=== PATIENT | male | born 1950 | race Caucasian/White ===

== ENCOUNTER 2024-02-23 13:00 | Outpatient (CLI) | payer OTHER, SELFPAY ==
[2024-02-27 09:04] LABS: Absolute Lymphocyte Count 1.52 X10^3/uL (0.83-4.51); Absolute Neutrophil Count 4.3 X10^3/uL (2.0-7.7); Basophil# 0.03 X10^3/uL; Basophil% 0.4 % (0-1); Eosinophil# 0.52 X10^3/uL; Eosinophils% 7.3 % (0-5); Hematocrit 42.1 % (40-54); Hemoglobin 13.2 g/dL (13.0-16.5); Lymphocyte # 1.52 X10^3/ul (0.83-4.51); Lymphocyte % 21.3 % (19-41); Mean Corp Hgb Conc 31.4 g/dL (32-36); Mean Corpuscular Hgb 27.3 pg (27.0-32.0); Mean Platelet Vol. 9.2 fl (6.2-12.0); Monocyte# 0.72 X10^3/uL; Monocyte% 10.1 % (0-10); NRBC Flagged by Analyzer 0 % (0-5); Neutrophil # 4.34 X10^3/uL (2.7-7.7); Neutrophil % 60.6 % (47-70); Platelet Count 283 K/mm3 (150-450); RBC Distribution Width CV 13.4 % (11.6-14.6); RBC Distribution Width SD 42.8 fl (35.1-43.9); Red Blood Count 4.84 M/mm3 (4.6-6.2); White Blood Count 7.2 K/mm3 (4.4-11.0)
[2024-02-27 09:53] LABS: Albumin, Serum 3.2 g/dL (3.2-5.0); Anion Gap 6 (5-15); BUN 16 mg/dL (7-18); BUN/Creat Ratio 19.8 RATIO (10-20); Calcium,Total 9.2 mg/dL (8.5-10.1); Chloride 105 mmol/L (98-107); Creatinine, Serum 0.81 mg/dL (0.70-1.30); EST Glomerular Filtration Rate 99 mL/min (>60); Est Glom Filt Rate - Afr Amer 120 mL/min (>60); Glucose 93 mg/dL (74-106); Magnesium 1.9 mg/dL (1.6-2.6); Potassium 4.3 mmol/L (3.5-5.1); Sodium Level 138 mmol/L (136-145)
== END 2024-02-23 23:00 | disposition home or self-care (01) ==
LOC: SDC 07-17 22:05
PROVIDERS: Referring Provider Student in an Organized Health Care Education/Training Program; Visit Provider Student in an Organized Health Care Education/Training Program
DX: Z01.818 Encounter for other preprocedural examination (principal)
CPT/HCPCS: 36415; 80048; 82040; 83735; 85025; 87081

== ENCOUNTER → 2024-02-27 | Outpatient (CLI) | payer OTHER, SELFPAY ==
--- NOTE | 2024-02-27 06:37 | CT_ITS ---
EXAM: CT LEFT LOWER EXTREMITY WITHOUT INTRAVENOUS CONTRAST CLINICAL INDICATION: PAIN TECHNIQUE: Helically acquired images were obtained of the left lower extremity without intravenous contrast. 2-D reformats were performed by the technologist. CTDIvol = ( 18.76 ) mGy, DLP = ( 1177.54 ) mGycm This CT exam was performed using one or more of the following dose reduction techniques: automated exposure control, adjustment of the mA and/or kV according to patient size, and/or use of iterative reconstruction technique. COMPARISON: No relevant prior studies available. FINDINGS: BONES/JOINTS: Moderate left hip osteoarthrosis. 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 Lateral and medial meniscal chondrocalcinosis. Ankle mortise is intact. A few small chronic erosions with overhanging edges at the inferior process of the medial malleolus. No sclerotic or destructive changes. No acute or healing fracture or other malalignment. No significant tibiotalar joint effusion. No osteochondral defects at the tibiotalar articulation. SOFT TISSUES: Unremarkable. No soft tissue swelling or gas. No radiopaque foreign body. CT/Extremity Lower without Contra IMPRESSION: 1. 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 2. Moderate left hip osteoarthrosis. 3. A few small chronic erosions with overhanging edges at the inferior process of the medial malleolus. Electronically Signed: Juan Aguirre MD at 22:41 EDT ,
== END | disposition home or self-care (01) ==
PROVIDERS: Referring Provider Student in an Organized Health Care Education/Training Program; Visit Provider Student in an Organized Health Care Education/Training Program
DX: M17.12 Unilateral primary osteoarthritis, left knee (principal)
CPT/HCPCS: 73700

== ENCOUNTER → 2024-07-19 | Outpatient (CLI) | payer OTHER, SELFPAY ==
--- NOTE | 2024-04-26 14:39 | PAT.ANE_ITS ---
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 When Was Last Pacemaker Check QUESTION #4 FULL TEXT: You/Your Family Experience fever (hyperthermia) with Anesthesia Last Oral Intake Last Oral intake: Last Oral Intake NPO since Meds taken in AM with sips of water? Meds patient instructed to take am of surgery PONV PONV - debt management counselor: PONV - debt management counselor Female No 04/26/24 14:05 HX of Motion Sickness No 04/26/24 14:05 HX of N/V After Surgery No 04/26/24 14:05 Non-Smoker Yes 04/26/24 14:05 Duration of Surgery greater Yes 04/26/24 14:05 than 60 minutes Number of Risk Factors 2 04/26/24 14:05 PONV Score Moderate Risk 04/26/24 14:05 Respiratory Assessment Respiratory Assessment - debt management counselor: Respiratory Tract Infection Hx - debt management counselor Hx Respiratory Tract Infection No 04/26/24 14:05 STOP Sleep Apnea STOP Sleep Apnea - debt management counselor: STOP Sleep Apnea - debt management counselor Hx Hypertension No 04/26/24 14:05 Hx Sleep Apnea No 04/26/24 14:05 CPAP BIPAP Do you snore loudly (louder No 04/26/24 14:05 than talking or can be heard Do you often feel tired/ No 04/26/24 14:05 fatigued/ sleepy during daytime? Has anyone observed you stop No 04/26/24 14:05 breathing during sleep? STOP Results Negative 04/26/24 14:05 QUESTION #5 FULL TEXT : Do you snore loudly (louder than talking or can be heard through closed doors)? 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 Specify any problems Hx of Preganancy in last 3 N/A 04/26/24 14:05 Months Nurse Filling Out Transfusion VCHRISTIN 04/26/24 14:05 & Questions: Date: 04/26/24 04/26/24 14:05 Time: 14:05 04/26/24 14:05 Patient unable to answer at this time (ie. confused, unrespo /Reproduction History /Reproductive History - debt management counselor: /Reproductive Hx- debt management counselor Hx Now No 04/26/24 14:05 Gestational Age (in weeks): EDC: Hx Hx Para Hx Section SAB No 04/26/24 14:05 PFSH Medical History Wears glasses Rheumatoid arthritis Arthritis Fatty liver Heartburn Gastric reflux Former smoker Home Medications ?Medication ?Instructions ?Recorded ?Last Taken ?Type cetirizine 10 mg tablet (All Day 10 mg PO DAILY PRN allergy symptoms 04/26/24 Unknown History Allergy (cetirizine)) cholecalciferol (vitamin D3) 25 3,000 unit PO DAILY 04/26/24 Unknown History mcg (1,000 unit) capsule (Vitamin D3) etanercept 50 mg/mL (1 mL) 50 mg subcut QWEEK 04/26/24 Unknown History subcutaneous syringe (Enbrel) magnesium oxide 400 mg PO DAILY 04/26/24 Unknown History meloxicam 7.5 mg tablet 15 mg PO DAILY 04/26/24 Unknown History multivitamin (Daily Multi-Vitamin 1 tab PO DAILY 04/26/24 Unknown History tablet) omeprazole 20 mg capsule,delayed 20 mg PO DAILY 04/26/24 Unknown History release sulfasalazine 500 mg tablet 0.5 g PO BID 04/26/24 Unknown History tamsulosin 0.4 mg capsule 0.4 mg PO DAILY 04/26/24 Unknown History Allergy/AdvReac Type Severity Reaction Status Date / Time No Known Allergies Allergy Verified 04/26/24 08:26 Surgical History History of tonsillectomy History of colectomy (~1998) History of colonoscopy Social History Smoking Status: Former smoker Audit: Pertinent Findings Pertinent Findings Echo (EF%) pertinent findings: mild aortic stenosis. size fxn wnl 04/2024 Pulmonary function results/spirometer pertinent findings: chest ray 02/20/2023 scarring, no acute infiltrates PFT 05/07 fevipre/post same @76-77% normal spi rometry Recommendation Anesthesia Recommendation Anesthesia recommendation: OPTIMIZED for anesthesia
== END | disposition home or self-care (01) ==
LOC: SDC 13:00 → PAT 13:00
PROVIDERS: Visit Provider Student in an Organized Health Care Education/Training Program
DX: Z53.9 Procedure and treatment not carried out, unspecified reason (principal)